=== PATIENT | female | born 1975 | race Caucasian/White ===

== ENCOUNTER 2017-02-07 04:41 | Emergency (ER) | payer BC ==
[~2017-02-07] VITALS: Ht 165.1 cm; Wt 79.4 kg
--- NOTE | ~2017-02-07 | EKG ---
[address] [address] ELECTROCARDIOGRAM REPORT Name: AYESHA KILGORE [id number] Admission: 02/07/17 Attend Phys: Discharge: 02/07/17 Date of : 75 Report #: [id number] THIS REPORT FOR: //name// [facility] ED Test Date: 2017-02-07 Test Time: 04:56:50 Pat Name: AYESHA KILGORE Department: Room: Gender: F Math Instructor: AURELIO : 1975 Requested By: Andrés Briggs Order Number: [id number] MD: Rene Camarillo Measurements Intervals [place] Rate: 82 P: 41 SD: 198 QRS: 54 QRSD: 85 T: 18 QT: 377 QTc: 441 Interpretive Statements Sinus rhythm Normal tracing No previous ECG available for comparison Electronically Signed On 02-07-2017 11:23:30 PAPER COUNTER by Rene Camarillo [email or web address] <ELECTRONICALLY SIGNED> By: Rene Camarillo MD, [facility] 02/07/17 [id number] Rene Camarillo MD, FACC /EPI
[~2017-02-07 04:41] MED LIST: PRENATAL
[2017-02-07] MEDS ORDERED: CALCIUM 500 +1 EAC5 PO (05:02)
[2017-02-07 05:05] LABS: ABSOLUTE NEUTROPHILS 7.1 thou/uL (1.4-8.2); BASOPHILS 0.6 % (0.0-2.0); EOSINOPHILS 3.3 % (0.0-3.0); HEMATOCRIT 33.2 % (37.0-47.0); HEMOGLOBIN 11.2 gm/dL (12.0-15.0); LYMPHOCYTES 19.9 % (24.0-44.0); MCH 31.4 pg (26.0-34.0); MCHC 33.8 g/dL (28.0-37.0); MCV 92.9 fL (80.0-100.0); MONOCYTES 8.3 % (1.0-8.0); PLATELET COUNT 232 thou/uL (150-400); POLYS 67.9 % (36.0-66.0); RBC 3.57 mil/uL (4.20-5.00); RDW 14.5 % (10.5-14.5); WBC 10.5 thou/uL (4.0-11.0)
[2017-02-07 05:08] LABS: MANUAL DIFF NO
[2017-02-07 05:14] LABS: ANION GAP 7 mmol/L (7-16); BUN 13 mg/dL (7-18); CHLORIDE 106 mmol/L (98-107); CO2 26 mmol/L (21-32); CREATININE 0.7 mg/dL (0.6-1.0); GLUCOSE 103 mg/dL (74-106); POTASSIUM 3.6 mmol/L (3.5-5.1); SODIUM 139 mmol/L (136-145)
[2017-02-07 05:22] LABS: ALBUMIN 2.5 g/dL (3.4-5.0); ALKALINE PHOSPHATASE 80 U/L (46-116); MAGNESIUM 1.9 mg/dL (1.8-2.4); SGOT 18 U/L (15-37); SGPT 25 U/L (30-65); TOTAL BILIRUBIN 0.1 mg/dL (<0.1-1.0); TOTAL PROTEIN 6.5 g/dL (6.4-8.2); TROPONIN-I < 0.04 ng/mL (<0.06)
[2017-02-07] MEDS ORDERED: PEPCID20 MG PO (05:32)
[2017-02-07 05:34] LABS: PROTIME 9.1 Seconds (9.3-11.4)
[2017-02-07 05:55] VITALS: BP 116/72
== END 2017-02-07 05:50 | disposition home or self-care (01) ==
LOC: ER 04:41
PROVIDERS: Emergency Medicine
DX: O26.893 Other specified pregnancy related conditions, third trimester (principal); J45.909 Unspecified asthma, uncomplicated; K21.0 Gastro-esophageal reflux disease with esophagitis; Z3A.28 28 weeks gestation of pregnancy

== ENCOUNTER 2017-04-19 18:20 | Emergency (ER) | payer OTHER ==
[~2017-04-19] VITALS: Ht 165.1 cm; Wt 89.4 kg
[~2017-04-19 18:20] MED LIST changes: +CALCIUM 500 +1 EAC5 PO; +PEPCID20 MG PO
== END 2017-04-19 19:20 | disposition home or self-care (01) ==
LOC: ER 18:20
DX: O26.893 Other specified pregnancy related conditions, third trimester (principal); K64.9 Unspecified hemorrhoids; J45.909 Unspecified asthma, uncomplicated; Z3A.38 38 weeks gestation of pregnancy